=== PATIENT | female | born 1995 | race Caucasian/White ===

== ENCOUNTER → 2017-08-29 | Outpatient (CLI) | payer BC ==
--- NOTE | 2017-08-29 15:57 | DIAGNOSTIC IMAGING REPORT ---
CHEST 2 VIEWS ROUTINE CLINICAL HISTORY: 22 years-old Female presenting with LYMPHADENOPATHY, POSTERIOR CERVICAL. TECHNIQUE: PA and lateral views of the chest were obtained. COMPARISON: None. FINDINGS: Cardiomediastinal silhouette normal. Lungs and pleural spaces clear. Osseous structures normal. Upper abdomen normal. IMPRESSION: 1. No acute cardiopulmonary disease. Electronically signed by: Lewis Llanes M.D. 08/29/2017 3:55 PM Dictated Date/Time: 08/29/2017 3:55 PM
[2017-08-29 17:01] LABS: HEMATOCRIT 37.6 % (37-47); MEAN CORPUSCULAR HEMOGLOBIN 31.3 pg (25-34); MEAN CORPUSCULAR HGB CONC 33.2 g/dl (32-36); MEAN PLATELET VOLUME 10.4 fL (7.4-10.4); PLATELET COUNT 170 K/uL (130-400); WHITE BLOOD COUNT 5.92 K/uL (4.8-10.8)
[2017-08-29 17:12] LABS: ALT/SGPT 53 U/L (12-78); AST/SGOT 47 U/L (15-37); BLOOD UREA NITROGEN 8 mg/dl (7-18); BUN/CREATININE RATIO 8.6 (10-20); CALCIUM 8.7 mg/dl (8.5-10.1); CARBON DIOXIDE 30 mmol/L (21-32); CHLORIDE 106 mmol/L (98-107); CREATININE 0.93 mg/dl (0.60-1.20); GLUCOSE 87 mg/dl (70-99); POTASSIUM 3.8 mmol/L (3.5-5.1); SODIUM 139 mmol/L (136-145)
[2017-08-29 17:15] LABS: ALB/GLOB RATIO 1.2 (0.9-2); ALKALINE PHOSPHATASE 80 U/L (45-117)
[2017-08-29 17:45] LABS: LYME DISEASE AB IGG NEG (NEG)
[2017-08-29 17:46] LABS: LYME DISEASE AB IGM NEG (NEG)
[2017-08-29 18:05] LABS: COMPLETE YES; EOSINOPHIL % 0.9 %; LYMPH ABS # 1.52 K/uL (1.2-3.4); LYMPHOCYTE % 25.7 %; NEUTROPHILS % 36.7 %; VARIANT LYM ABS # 2.07 K/uL; VARIANT LYMPHOCYTE % 34.9 %
== END | disposition home or self-care (01) ==
LOC: C.LABBC 15:24
PROVIDERS: ATTEND Physician Assistant
DX: R59.0 Localized enlarged lymph nodes (principal)

== ENCOUNTER → 2017-09-20 | Outpatient (CLI) | payer BC ==
--- NOTE | 2017-09-20 15:04 | DIAGNOSTIC IMAGING REPORT ---
NECK ULTRASOUND CLINICAL HISTORY: Posterior cervical lymphadenopathy. COMPARISON STUDY: None. TECHNIQUE: Sonography of the neck at site of palpable abnormality was performed. FINDINGS: Note is made of a posterior cervical lymph node that measures 1.8 x 0.3 x 1.4 cm. This likely reflects the palpable abnormality. This suggests a lymph node and is likely benign given its morphology. A few additional benign-appearing cervical lymph nodes were noted. Note was made of a 1.5 x 1.2 x 1 cm mixed cystic and solid right lobe thyroid nodule. This contained several echogenic foci which could reflect colloid or microcalcifications. Note was also made of a 1.3 x 0.6 x 0.8 cm mixed cystic and solid left lobe nodule which is likely benign. IMPRESSION: 1. Posterior cervical lymph node which likely accounts for the palpable abnormality. This node has benign imaging characteristics however clinical follow up to ensure stability is recommended. If this should enlarge, repeat ultrasound is recommended. 2. Several incidentally noted thyroid nodules, including a mixed cystic and solid 1.5 x 1.2 x 1 cm right lobe thyroid nodule. This contains several echogenic foci which could reflect colloid or microcalcifications. Ultrasound-guided fine needle aspiration of this right lobe nodule is recommended. Electronically signed by: Yoseph Veloz M.D. 09/20/2017 3:03 PM Dictated Date/Time: 09/20/2017 2:58 PM
== END | disposition home or self-care (01) ==
LOC: C.ULTR 14:24
PROVIDERS: ATTEND Physician Assistant
DX: R59.0 Localized enlarged lymph nodes (principal)

== ENCOUNTER → 2017-09-28 | Outpatient (CLI) | payer BC ==
--- NOTE | 2017-09-28 13:42 | DIAGNOSTIC IMAGING REPORT ---
GUIDANCE NEEDLE PLACEMENT CLINICAL HISTORY: 22 years-old Female presenting with MULTIPLE THYROID NODULE, RIGHT SIDE. TECHNIQUE: Real-time grayscale and limited color Doppler ultrasound imaging of the right thyroid was performed for ultrasound-guided fine-needle aspiration. COMPARISON: Ultrasound from 09/20/2017. PROCEDURE: The risks, benefits, and alternatives of the procedure were discussed with the patient. Written informed consent was obtained. A timeout was performed to confirm patient identity. The patient was placed supine in ultrasound, and the 1.6 x 1.3 cm hypoechoic nodule with punctate internal hyperechogenicity suggesting microcalcifications in the right lobe of the thyroid was localized by ultrasound and selected for fine needle aspiration. The right neck was prepped and draped in the usual sterile fashion. The nodule was aspirated under ultrasound guidance with 2 passes utilizing 25-gauge needles. Specimens were reviewed by the pathologist at the time of biopsy and were deemed adequate for diagnosis. The patient tolerated the procedure well. Additionally, limited real-time grayscale ultrasound imaging of the left posterior cervical triangle was performed for evaluation of a palpable abnormality. At this site a benign-appearing superficial lymph node was noted. IMPRESSION: Successful fine-needle aspiration of the right thyroid nodule as above. Electronically signed by: Lewis Llanes M.D. 09/28/2017 1:41 PM Dictated Date/Time: 09/28/2017 1:39 PM
== END | disposition home or self-care (01) ==
LOC: C.ULTR 12:25
PROVIDERS: ATTEND Physician Assistant
DX: E04.2 Nontoxic multinodular goiter (principal)